=== PATIENT | female | born 1945 ===

== ENCOUNTER 2017-03-10 09:01 | Emergency (ER) | payer MEDICARE ==
[2017-03-10 09:02] VITALS: BMI 31.1
[2017-03-10 09:08] VITALS: RESP 18
--- NOTE | 2017-03-10 11:18 | C.PDOC ---
History Of Present Illness 71 year old female, whose PMH includes DM and HTN, is brought to the ED by daughter for evaluation of right hip pain, back pain and headache which began after she sustained a fall early this morning. Patient states she fell out of her bed and landed flat on her back onto the hardwood floor. Patient notes she hit the back of her head, but denies loss of consciousness. Patient also denies dizziness, either prior to or after the fall. Denies vision change, nausea, vomiting, extremity numbness/weakness. - HPI Time Seen by Provider: 03/10/17 09:46 Chief Complaint (Nursing): Trauma History Per: Patient, Family (daughter) History/Exam Limitations: no limitations Onset/Duration Of Symptoms: Hrs Injury Occurred (Timing): Today @ (0430) Location Of Injury: Right: Hip, Posterior: Back Additional History Per: Patient, Family Past Medical History Reviewed: Historical Data, Nursing Documentation, Vital Signs Vital Signs: Last Vital Signs Temp 98.2 F 03/10/17 12:24 Pulse 61 03/10/17 12:24 Resp 18 03/10/17 12:24 BP 151/69 H 03/10/17 12:24 Pulse Ox 99 03/10/17 17:10 - Medical History PMH: Anemia, Anxiety, Arthritis, Asthma (CAN NOT REMEMBER WHEN HAD LAST ATTACK) , CAD, Cardia Arrhythmia, Diabetes (NIDDM), Fractures, Gastritis, HTN, Hypercholesterolemia Surgical History: Coronary Stent (Apr 2014) - [facility] Procedures CORONAR ARTERIOGR-2 CATH (05/08/14) INFLUENZA VACCINATION (05/08/14) INSERTION OF ONE VASCULAR STENT (05/09/14) INSRT OF DRUG-ELUTING CORON ARTERY STENTS(S) (05/09/14) INTRAVASCULAR PRESSURE MEASUREMENT OF CORONARY ARTERIES (08/16/13) LEFT HEART CARDIAC CATH (05/08/14) LT HEART ANGIOCARDIOGRAM (05/08/14) PERCUTANEOUS TRANSLUMINAL CORONARY ANGIOPLASTY [PTCA] (05/09/14) PROCEDURE ON SINGLE VESSEL (05/09/14) RADICAL EXCIS SKIN LES (01/24/13) Family History: States: Unknown Family Hx - Social History Hx Tobacco Use: No Hx Alcohol Use: No Hx Substance Use: No - Immunization History Hx Tetanus Toxoid Vaccination: No Hx Influenza Vaccination: Yes (2013) Hx Pneumococcal Vaccination: Yes (2013) Review Of Systems Eyes: Negative for: Vision Change Gastrointestinal: Negative for: Nausea, Vomiting Musculoskeletal: Positive for: Back Pain, Other (right hip pain ) Neurological: Negative for: Weakness, Numbness, Dizziness, Other (LOC) Physical Exam - Physical Exam Appears: Non-toxic, No Acute Distress Skin: Normal Color, Dry Head: Atraumatic, Normacephalic, No Tenderness, No Laceration, No Other ( hematoma ) Eye(s): bilateral: PERRL, EOMI, right: Other (abnormal pupil (baseline)), left: Normal Inspection Nose: Normal, No Septal Hematoma Oral Mucosa: Moist Neck: Normal ROM, No Midline Cervical Tenderness, Supple Chest: Symmetrical, No Deformity Cardiovascular: Rhythm Regular, No Murmur Respiratory: Normal Breath Sounds, No Rales, No Rhonchi, No Wheezing Back: Paraspinal Tenderness (lumbar ) Extremity: Normal ROM, Tenderness (mild to right hip ), No Calf Tenderness, Capillary Refill (less than 2 seconds ), No Deformity, No Swelling, Other (no leg shortening) Neurological/Psych: Oriented x3, Normal Speech, Normal Cranial Nerves, No Cerebellar Signs, Other (no focal deficits ) Gait: Steady ED Course And Treatment O2 Sat by Pulse Oximetry: 99 (on RA) Pulse Ox Interpretation: Normal - Other Rad lumbar spine XR X-Ray: Interpreted by Me, Viewed By Me, Read By Radiologist Interpretation: PROCEDURE: Radiographs of the Lumbar Spine. HISTORY: pain s.p fall out of bed. COMPARISON: No prior. FINDINGS: BONES: Transitional elements are suggested. For purposes of this report on the lateral view the lowest disc containing space will be considered L5-S1. T9-10 prominent anterior osteophyte. Lesser degrees of anterior spondylosis inferior to this noted. No compression fracture. Diffuse thoraco lumbar level intervening disc space narrowing. DISC SPACES: As above. OTHER FINDINGS: Atherosclerotic vascular calcifications descending abdominal aorta. Bilateral hemipelvic phleboliths. Moderate stool retention. IMPRESSION: No fracture or subluxation. Transitional elements. Thoracic and lumbar spondylosis. hip/pelvis XR X-Ray: Interpreted by Me, Viewed By Me, Read By Radiologist Interpretation: PROCEDURE: HISTORY: pain s.p fall out of bed. COMPARISON: None. TECHNIQUE: AP view of the pelvis and applicable frog leg views obtained. FINDINGS: Bilateral superolateral hip joint space narrowing with bilateral mild acetabular spurring. No fractures noted. Inferior sacroiliac joint hypertrophic sclerotic arthrosis. L5-S1 left facet hypertrophic sclerotic arthrosis. Bilateral hemipelvic phleboliths. IMPRESSION: No fracture or dislocation. Arthrosis - CT Scan/US CT Head Other Rad Studies (CT/US): Interpreted By Me, Read By Radiologist, Radiology Report Reviewed CT/US Interpretation: PROCEDURE: CT HEAD WITHOUT CONTRAST. HISTORY: pain s.p fall out of bed. COMPARISON: Noncontrast head CT performed 08/04/15. TECHNIQUE : Axial computed tomography images were obtained through the head/brain without intravenous contrast. Radiation dose: Total exam DLP = 859.97 mGy-cm. This CT exam was performed using one or more of the following dose reduction techniques: Automated exposure control, adjustment of the mA and/or kV according to patient size, and/or use of iterative reconstruction technique. FINDINGS: HEMORRHAGE: No intracranial hemorrhage. BRAIN: Diffuse atrophy with prominence of the ventricles and sulci noted. No mass effect or edema. Mild scattered white matter hypodensities, which are nonspecific, but often seen with chronic microvascular ischemic disease. Please note that MRI with diffusion imaging is more sensitive in the detection of acute ischemic event. VENTRICLES: No hydrocephalus. CALVARIUM: Unremarkable. PARANASAL SINUSES: Unremarkable as visualized. No significant inflammatory changes. MASTOID AIR CELLS: Unremarkable as visualized. No inflammatory changes. OTHER FINDINGS: Partially imaged postsurgical changes, right globe. IMPRESSION: No acute intracranial pathology identified. Medical Decision Making Medical Decision Making: Impression: 71 year old female with right hip pain, back pain, and headache after fall Plan: * CT Head * Hip XR * LS Spine AP/LAT * Tylenol PO * reassess and disposition Progress: CT Head, Hip XR, LS Spine AP/LAT ordered and reviewed. Tylenol PO administered. No fractures seen on Xrays. CT head showed no ICH. Patient stable for discharge. Disposition Counseled Patient/Family Regarding: Diagnosis, Need For Followup, Rx Given - Disposition Referrals: Aly Mccormick MD [Primary Care Provider] - Disposition: HOME/ ROUTINE Disposition Time: 12:11 Condition: STABLE Additional Instructions: Your head CT was normal and xrays were normal, no fracture. Please take Tylenol or Motrin for any pain. Follow up with your doctor for any further evaluation. Instructions: Contusion in Adults (DC) Print Language: PORTUGUESE - POA Present On Arrival: None - Clinical Impression Clinical Impression: Contusion of back, Fall from bed - PA / ROOM SERVICE RUNNER / Resident Statement MD/DO has reviewed & agrees with the documentation as recorded. - Scribe Statement The provider has reviewed the documentation as recorded by the Scribe (Jazmin Padilla) All medical record entries made by the Scribe were at my direction and personally dictated by me. I have reviewed the chart and agree that the record accurately reflects my personal performance of the history, physical exam, medical decision making, and the department course for this patient. I have also personally directed, reviewed, and agree with the discharge instructions and disposition.
[2017-03-10 12:25] VITALS: BP 151/69; PULSE 61; TEMP 98.2
--- NOTE | 2017-03-10 15:07 | RAD ---
PROCEDURE: Radiographs of the Lumbar Spine. HISTORY: pain s.p fall out of bed COMPARISON: No prior. FINDINGS: BONES: Transitional elements are suggested. For purposes of this report on the lateral view the lowest disc containing space will be considered L5-S1. T9-10 prominent anterior osteophyte. Lesser degrees of anterior spondylosis inferior to this noted. No compression fracture. Diffuse thoraco lumbar level intervening disc space narrowing. DISC SPACES: As above OTHER FINDINGS: Atherosclerotic vascular calcifications descending abdominal aorta. Bilateral hemipelvic phleboliths. Moderate stool retention. IMPRESSION: No fracture or subluxation. Transitional elements Thoracic and lumbar spondylosis.
--- NOTE | 2017-03-10 15:09 | RAD ---
PROCEDURE: HISTORY: pain s.p fall out of bed COMPARISON: None TECHNIQUE: AP view of the pelvis and applicable frog leg views obtained. FINDINGS: Bilateral superolateral hip joint space narrowing with bilateral mild acetabular spurring. No fractures noted. Inferior sacroiliac joint hypertrophic sclerotic arthrosis. L5-S1 left facet hypertrophic sclerotic arthrosis. Bilateral hemipelvic phleboliths IMPRESSION: No fracture or dislocation. Arthrosis
[2017-03-10 17:10] VITALS: O2SAT 99
== END 2017-03-10 12:25 | disposition home or self-care (01) ==
LOC: C.ER 09:01 → SUPCPDRO 09:01 → C.ER 12:25
DX: S30.0XXA Contusion of lower back and pelvis, initial encounter (principal); W06.XXXA Fall from bed, initial encounter; Y93.89 Activity, other specified; Y92.003 Bedroom of unspecified non-institutional (private) residence as the place of occurrence of the external cause; I10 Essential (primary) hypertension; E11.9 Type 2 diabetes mellitus without complications

== ENCOUNTER 2018-10-11 09:14 | Outpatient (CLI) | payer MEDICARE | END 2018-10-11 09:15 | disposition home or self-care (01) | LOC: C.CTH 09:14 | DX: I10 Essential (primary) hypertension (principal); E11.9 Type 2 diabetes mellitus without complications; E78.00 Pure hypercholesterolemia, unspecified; M19.90 Unspecified osteoarthritis, unspecified site; R10.32 Left lower quadrant pain; Z12.31 Encounter for screening mammogram for malignant neoplasm of breast ==

== ENCOUNTER 2018-10-15 09:08 | Outpatient (CLI) | payer MEDICARE | END 2018-10-15 09:09 | disposition home or self-care (01) | LOC: C.MAMMO 09:09 | DX: Z12.31 Encounter for screening mammogram for malignant neoplasm of breast (principal); M81.0 Age-related osteoporosis without current pathological fracture; M51.9 Unspecified thoracic, thoracolumbar and lumbosacral intervertebral disc disorder ==

== ENCOUNTER 2018-10-29 07:26 | Outpatient (CLI) | payer MEDICARE | END 2018-10-29 07:27 | disposition home or self-care (01) | LOC: C.CARD 07:26 ==